=== PATIENT | male | born 1990 | race Caucasian/White ===

== ENCOUNTER 2017-02-01 22:10 | Emergency (ER) | payer OTHER ==
[~2017-02-01] VITALS: Ht 172.7 cm; Wt 63.0 kg
--- NOTE | 2017-02-01 22:15 | NUR ---
To bed 8 a 26 yo male bb ra for ok to book; admits to meth and weed at 1700 prior to booking, patient reports that he feels like the room is spinning. vss. nondiaphoretic. safety measures initiated. lapd at bedside. awaiting for er md bravo.
[2017-02-01] MEDS ORDERED: ONDANSETRON 4 MG TAB.RAPDIS ONE (22:30)
[2017-02-01] MEDS ORDERED: ONDANSETRON 4 MG TAB.RAPDIS SL ONE (22:30)
--- NOTE | 2017-02-01 23:15 | NUR ---
Patient discharged to police custody in stable condition. Written and verbal after care instructions given. Patient verbalizes understanding of instruction. Patient is ambulatory with a steady gait, no further complaints.
[2017-02-01 23:16] VITALS: BP 140/76
== END 2017-02-01 23:16 | disposition home or self-care (01) ==
LOC: ER 22:11
DX: R11.0 Nausea (principal); F19.10 Other psychoactive substance abuse, uncomplicated; F17.210 Nicotine dependence, cigarettes, uncomplicated
CPT/HCPCS: 82962; 99283; A4606; Q0162; Z7610